=== PATIENT | male | born 1970 | race African-American/Black ===

== ENCOUNTER 2017-06-10 09:02 | Emergency (ER) | payer OTHER ==
[~2017-06-10] VITALS: Ht 175.3 cm; Wt 93.9 kg
[2017-06-10 10:02] VITALS: BP 143/82
== END 2017-06-10 10:02 | disposition home or self-care (01) ==
LOC: ED 09:02
DX: M54.31 Sciatica, right side (principal); E07.9 Disorder of thyroid, unspecified; Z98.890 Other specified postprocedural states
CPT/HCPCS: J1100; J1885

== ENCOUNTER 2017-11-05 13:21 | Emergency (ER) | payer OTHER ==
[~2017-11-05] VITALS: Ht 175.3 cm; Wt 92.1 kg
[2017-11-05 13:34] VITALS: Ht 175.3 cm; Wt 92.1 kg
[2017-11-05 15:37] VITALS: BP 142/94
== END 2017-11-05 15:37 | disposition home or self-care (01) ==
LOC: ED 13:21
DX: M72.2 Plantar fascial fibromatosis (principal); M25.531 Pain in right wrist